=== PATIENT | male | born 1945 | race Caucasian/White ===

== ENCOUNTER 2024-04-05 18:14 | Outpatient (REF) | payer MEDICARE, SELFPAY ==
[2024-04-05 17:27] LABS: Abs Immature Grans 1.22 10^3/uL (0.0-0.06); HCT 30.6 % (40.0-50.0); HGB 10.3 g/dL (13.5-17.5); MCH 28.8 pg (27.0-33.0); MCHC 33.7 % (32.0-36.0); MCV 86 fL (80-95); MPV 10.1 fL (8.0-11.0); Nucleated RBC 1.6 % (0.0-0.3); Platelet Count 218 10^3/uL (130-400); RBC 3.58 10^6/uL (4.36-5.78); RDW 17.9 % (11.8-14.1); RDW-SD 52.3 fL; WBC 10.39 10^3/uL (4.4-10.8)
[2024-04-05 17:40] LABS: ALT 49 U/L (16-63); AST 13 U/L (15-37); Albumin 2.7 g/dL (3.4-5.0); Alkaline Phosphatase 87 U/L (46-116); Anion Gap 10.3 mmol/L (3-11); BUN 38 mg/dL (7-18); Bilirubin, Total 0.4 mg/dL (0.2-1.0); CO2 28.7 mmol/L (21.0-32.0); Calcium 7.8 mg/dL (8.5-10.1); Chloride 102 mmol/L (98-107); Estimated GFR 76.56 (mL/min/1.73m2); Glucose 147 mg/dL (74-106); Sodium 141 mmol/L (136-145); Total Protein 5.3 g/dL (6.4-8.2)
[2024-04-05 17:53] LABS: Absolute Lymphocyte Count 0.94 10^3/uL (1.2-3.4); Absolute Monocyte Count 0.42 10^3/uL (0.1-0.8); Absolute Neutrophil Count 8.31 10^3/uL (1.2-6.7); Atypical Lymphocytes % 1 %; Bands % 8 %; Myelocytes % 7
[2024-04-05 17:54] LABS: Diff Comment Manual Differential; RBC Morphology Normal
== END 2024-04-05 18:15 | disposition home or self-care (01) ==
LOC: LBN 18:14
PROVIDERS: PCP Internal Medicine; Visit Provider Pediatrics
DX: C34.91 Malignant neoplasm of unspecified part of right bronchus or lung (principal); D70.9 Neutropenia, unspecified; A41.51 Sepsis due to Escherichia coli [E. coli]
CPT/HCPCS: 80053; 85025

== ENCOUNTER 2024-04-09 20:40 | Outpatient (REF) | payer MEDICARE, SELFPAY ==
[2024-04-09 21:02] LABS: Abs Immature Grans 1.56 10^3/uL (0.0-0.06); HCT 31.9 % (40.0-50.0); HGB 10.5 g/dL (13.5-17.5); MCH 28.6 pg (27.0-33.0); MCHC 32.9 % (32.0-36.0); MCV 87 fL (80-95); MPV 9.7 fL (8.0-11.0); Platelet Count 115 10^3/uL (130-400); RBC 3.67 10^6/uL (4.36-5.78); RDW 18.8 % (11.8-14.1); RDW-SD 56.5 fL; WBC 10.09 10^3/uL (4.4-10.8)
[2024-04-09 21:15] LABS: Absolute Lymphocyte Count 0.91 10^3/uL (1.2-3.4); Absolute Monocyte Count 1.11 10^3/uL (0.1-0.8); Absolute Neutrophil Count 7.37 10^3/uL (1.2-6.7); Atypical Lymphocytes % 2 %; Myelocytes % 3; RBC Morphology Normal
[2024-04-09 21:23] LABS: ALT 45 U/L (16-63); AST 13 U/L (15-37); Albumin 2.9 g/dL (3.4-5.0); Alkaline Phosphatase 87 U/L (46-116); Anion Gap 7.3 mmol/L (3-11); BUN 37 mg/dL (7-18); Bilirubin, Total 0.4 mg/dL (0.2-1.0); CO2 30.7 mmol/L (21.0-32.0); Calcium 7.9 mg/dL (8.5-10.1); Chloride 100 mmol/L (98-107); Estimated GFR 76.56 (mL/min/1.73m2); Glucose 139 mg/dL (74-106); LDH 510 U/L (85-227); Potassium 4.2 mmol/L (3.5-5.1); Sodium 138 mmol/L (136-145); Total Protein 5.5 g/dL (6.4-8.2)
== END 2024-04-09 20:41 | disposition home or self-care (01) ==
LOC: LBN 20:40
PROVIDERS: PCP Internal Medicine; Visit Provider Internal Medicine Hospice and Palliative Medicine
DX: C34.92 Malignant neoplasm of unspecified part of left bronchus or lung (principal)
CPT/HCPCS: 80053; 83615; 85025

== ENCOUNTER 2024-04-29 11:19 | Outpatient (REF) | payer MEDICARE, SELFPAY ==
[2024-04-29 11:39] LABS: HCT 33.6 % (40.0-50.0); HGB 11.2 g/dL (13.5-17.5); MCHC 33.3 % (32.0-36.0); MCV 87 fL (80-95); MPV 11.7 fL (8.0-11.0); RBC 3.86 10^6/uL (4.36-5.78); RDW 19.4 % (11.8-14.1); RDW-SD 61.7 fL; WBC 10.44 10^3/uL (4.4-10.8)
[2024-04-29 11:52] LABS: Platelet Count 34 10^3/uL (130-400)
[2024-04-29 11:53] LABS: Absolute Lymphocyte Count 0.21 10^3/uL (1.2-3.4); Absolute Monocyte Count 0.42 10^3/uL (0.1-0.8); Absolute Neutrophil Count 9.71 10^3/uL (1.2-6.7); Bands % 12 %; Diff Comment Manual Differential; Metamyelocytes % 1; RBC Morphology Normal
[2024-04-29 11:55] LABS: ALT 48 U/L (16-63); AST 13 U/L (15-37); Albumin 2.3 g/dL (3.4-5.0); Alkaline Phosphatase 103 U/L (46-116); Anion Gap 9.8 mmol/L (3-11); BUN 67 mg/dL (7-18); Bilirubin, Total 0.7 mg/dL (0.2-1.0); CO2 27.2 mmol/L (21.0-32.0); CREATININE 1.7 mg/dL (0.70-1.30); Calcium 8.1 mg/dL (8.5-10.1); Chloride 102 mmol/L (98-107); Glucose 232 mg/dL (74-106); LDH 426 U/L (85-227); Potassium 3.9 mmol/L (3.5-5.1); Sodium 139 mmol/L (136-145); Total Protein 5.8 g/dL (6.4-8.2)
[2024-04-29 14:55] LABS: Bilirubin Negative (Negative); Blood Large (Negative); Clarity Cloudy (Clear); Glucose Negative (Negative); Ketones Negative (Negative); Leukocyte Esterase Small (Negative); Nitrite Negative (Negative); Specific Gravity 1.015 (1.005-1.025); Urobilinogen 0.2 mg/dL (Up to 0.2)
[2024-04-29 15:00] LABS: Bacteria Few HPF (Negative); Casts Negative LPF (Negative); Crystals Negative HPF (Negative); Epithelial Cells Rare HPF (Negative); Mucus Moderate (Negative); RBC >50 HPF (0-2)
[2024-04-29 15:01] LABS: C & S Indicated? No
== END 2024-04-29 11:20 | disposition home or self-care (01) ==
LOC: LBN 11:19
PROVIDERS: PCP Internal Medicine; Visit Provider Internal Medicine Hospice and Palliative Medicine
DX: C34.92 Malignant neoplasm of unspecified part of left bronchus or lung (principal); R33.9 Retention of urine, unspecified; R30.0 Dysuria
CPT/HCPCS: 80053; 87077; 81003; 81015; 83615; 85025; 87086; 87186